=== PATIENT | male | born 1965 | race Caucasian/White ===

== ENCOUNTER 2025-07-22 13:17 | Emergency (ER) | payer MEDICAID, SELFPAY ==
[2025-07-22 13:17] VITALS: BMI 32.1
[2025-07-22 13:41] VITALS: BP 133/88; PULSE 98; RESP 18; TEMP 37.1; O2SAT 96
--- NOTE | 2025-07-22 13:42 | EDNOTE_ITS ---
ED Skin Abcess FB-RME/HPI General Stated complaint: LEFT LEG INFECTION Time Seen by Provider: 07/22/25 13:41 Arrival date/time: 07/22/25 13:17 59-year-old male presents to the emergency department complaints of erythema left lower extremity patient reports he ate a homemade tattoo 4 days ago which got infected Limitations: no limitations Related Data Home Medications ?Medication ?Instructions ?Recorded ?Confirmed fluoxetine 20 mg capsule 20 mg PO DAILY 10/17/2302/04 metoprolol tartrate 50 mg tablet 50 mg PO DAILY 10/17/23 olanzapine 15 mg tablet 15 mg PO DAILY 10/17/2302/04 prazosin 1 mg capsule 1 mg PO DAILY 10/17/2310/17 Previous Rx's ?Medication ?Instructions ?Recorded clindamycin HCl 150 mg capsule 450 mg (3 x 150 mg) PO TID 7 days 07/22/25 #63 caps ibuprofen 800 mg tablet 800 mg PO TID PRN pain #30 t abs 07/22/25 mupirocin 2 % topical ointment 1 applic topical TID 10 days #22 07/22/25 grams Allergies Allergy/AdvReac Type Severity Reaction Status Date / Time No Known Allergies Allergy Verified 07/22/25 13:19 Review of Systems Review of Systems Systems Reviewed: All systems reviewed, normal except as documented Constitutional Constitutional: Reports system reviewed and no additional complaints, except as documented, Denies fever(s) and Denies headache(s) Eyes Eyes: Reports system reviewed and no additional complaints, except as documented and Denies blurry vision ENT Ears, Nose, Mouth, and Throat: Reports system reviewed and no additional complaints, except as documented, Denies headache(s), Denies nasal congestion and Denies nasal discharge Cardiovascular Cardiovascular: Reports system reviewed and no additional complaints, except as documented, Denies chest pain and Denies dyspnea Respiratory Respiratory: Reports system reviewed and no additional complaints, except as documented, Denies chest congestion, Denies cough and Denies dyspnea Gastrointestinal Gastrointestinal: Reports system reviewed and no additional complaints, except as documented and Denies abdominal pain Integumentary/Breasts Skin/Breast: Reports system reviewed and no additional complaints, except as documented and Denies rash Neurologic Neurologic: Reports system reviewed and no additional complaints, except as documented, Reports as per HPI and Denies headache(s) Past Medical History Past Medical History NEUROLOGIC: Negative Neurological Disorders or Seizures CARDIAC: Positive Cardiac Disorders, Cardiac Arrhythmia (SVT 10 yrs ago) and Hypertension; Negative Congestive Heart Failure RESPIRATORY: Negative Chronic Obstructive Pulmonary Disease (COPD) or Asthma GASTROINTESTINAL: Negative Gastrointestinal Disorders GENITOURINARY: Negative Genitourinary Disorders or Renal Disease MUSCULOSKELETAL: Positive Musculoskeletal Disorders and Arthritis ENDOCRINE: Negative Endocrine Disorders, Diabetes Mellitus Type 1 or Diabetes Mellitus Type 2 HEMATOLOGIC: Negative Blood Disorders or Sickle Cell Disease PSYCHO/SOCIAL: Positive Recreational Drug Use (meth thc), Depression, Anxiety and Post Traumatic Stress Disorder OTHER HISTORY: Positive Hospitalization (sepsis and surgery) and Measles; Negative Autoimmune Disease, Shingles, Blood Transfusions, Blood Transfusion Reaction, Anesthesia Reactions or Cancer Family History FAMILY HISTORY: Negative Family Psychiatric Problems, Family Respiratory Disorders, Family Cardiac Disorders, Family Gastrointestinal Problems, Family Cancer, Family Surgery or Family Anesthesia Reaction Surgical History SURGICAL: Positive Abdominal Surgery, Gastric Bypass Surgery, Bowel Surgery (bowel infection was septic, induce coma) and Joint Replacement Social History SMOKING STATUS: Current some day smoker SECOND HAND EXPOSURE: Yes SUBSTANCE USE: marijuana ED Exam General Limitations: Present no limitations General appearance: Present alert and in no apparent distress Head Head exam: Present atraumatic, normocephalic and normal inspection Eye Eye exam: Present normal appearance, PERRL and EOMI; Absent conjunctival injection ENT ENT exam: Present normal exam, normal oropharynx and mucous membranes moist Neck Neck exam: Present normal inspection, full ROM and trachea midline Chest Chest inspection: Present normal inspection and symmetric chest wall rise Respiratory Respiratory exam: Present normal lung sounds bilaterally Cardiovascular Cardiovascular exam: Present regular rate, normal rhythm and normal heart sounds Abdominal Exam Abdominal exam: Present soft and normal bowel sounds; Absent distention, tenderness, guarding, rebound or rigidity Extremities Exam Extremities exam: Present normal inspection and full ROM Back Exam Back exam: Present normal inspection and full ROM Neurological Exam Neurological exam: Present alert, oriented X3 and CN II-XII intact Psychiatric Psychiatric exam: Present normal affect and normal mood Skin Skin exam: Present warm, dry and other (Edema left leg) Course Quality Measures none Orders Category Date Time Status Lidocaine 1% 20 ml [Xylocaine 1% 20 ML] Med 07/22/25 13:44 Discontinued 2.1 ml INFL X1 ONE cefTRIAXone [Rocephin] Med 07/22/25 13:44 Discontinued 1,000 mg IM X1 ONE Vital Signs Vital signs: Vital Signs Temperature 98.7 F 07/22/25 13:41 Pulse Rate 98 07/22/25 13:41 Respiratory Rate 18 07/22/25 13:41 Blood Pressure 133/88 H 07/22/25 13:41 Pulse Oximetry (%) 96 07/22/25 13:41 Oxygen Delivery Method Room Air 07/22/25 13:41 O2 saturation 96% room air within normal limits Skin / Abscess / Foreign Body MDM Narrative MDM Narrative:: 59-year-old male presents to the emergency department complaints of erythema left lower extremity patient reports he ate a homemade tattoo 4 days ago which got infected On exam patient has infection left lower extremity secondary to homemade tattoo Clinically patient does have cellulitis Patient was given injection of Rocephin discharged home with antibiotics and pain medication Patient discharged home in no distress to follow-up with primary care doctor in the next 24 to 48 hours and for any worsening symptoms to return to the ER immediately Patient data External records reviewed:: [facility] previous records Clinical information provided by:: patient Social determinants that could affect healthcare access:: none Patient has the following chronic illnesses:: None How is presenting disease/condition affected by chronic disease/condition?: no chronic disease Evaluation data The following diagnostics were reviewed and interpreted by me:: other (specify) (N/A) Lab and/or radiology exams considered but not ordered:: Considered and not ordered Interpretation Summary: N/A Medications / Prescriptions Medications or Prescriptions considered but not ordered:: Given Medication administrations:: Medication Administration History Discontinued Medications Ceftriaxone Sodium (Ceftriaxone Sod Inj 1,000 Mg Vial) 1,000 mg IM X1 ONE Stop: 07/22/25 13:45 Lidocaine HCl (Lidocaine Hcl 1% 20 Ml Vial) 2.1 ml INFL X1 ONE Stop: 07/22/25 13:45 given Consultations Consultation(s) initiated? (list below): No Diagnosis Skin/Abscess Differential Diagnosis: abscess of skin or subcutaneous tissue and cellulitis Most likely diagnosis given after review of the tests above:: Cellulitis left leg Admission Indicated Admission indicated?: not indicated Admission Request Was there a request for admission?: No Disposition Plan Disposition Plan: Discharge Discharge Attestation Discharge Attestation: The patient and all family members were given an opportunity to ask questions and understood the discharge instructions. Discharge instructions specifically effects, indications for sooner follow up or return to the emergency department, and the expected course of current diagnosis. Patient condition: Stable Discharge Plan Plan Patient Disposition: HOME (Self Care) Discharge Disposition comment: Stable Prescriptions/Referrals Prescriptions/Med Rec: New ibuprofen 800 mg tablet 800 mg PO TID PRN (Reason: pain) Qty: 30 0RF clindamycin HCl 150 mg capsule 450 mg PO TID 7 Days Qty: 63 0RF mupirocin 2 % ointment 1 applic topical TID 10 Days Qty: 22 0RF No Action prazosin 1 mg capsule 1 mg PO DAILY Patient Comments: TAKE ONE CAPSULE BY MOUTH AT BED TIME metoprolol tartrate 50 mg tablet 50 mg PO DAILY Patient Comments: TAKE ONE TABLET BY MOUTH TWICE DAILY WITH FOOD FOR BLOOD PRESSURE olanzapine 15 mg tablet 15 mg PO DAILY Patient Comments: TAKE ONE TABLET BY MOUTH AT BED TIME fluoxetine 20 mg capsule 20 mg PO DAILY Patient Comments: TAKE ONE CAPSULE BY MOUTH EVERY DAY Problem List Clinical Impression: Cellulitis of left leg Patient/Caregiver Discharge Instructions Education Materials: ED Cellulitis Additional Instructions: Please follow up with your primary care doctor in the next 24-48hrs for any worsening symptoms return here immediately Print Language: Icelandic Stand Alone Forms: Yessi Award Info., Patient Portal Info Letter PA/SUPERVISOR [employer]AF[employer]IT Supervising Physician PA/SUPERVISOR [employer]AF[employer] DEPOSIT Supervising Physician: Dr. reis
[2025-07-22] MEDS: LIDOCAINE HCL 1% 20 ML VIAL 2.1 ML INFL (14:38)
[2025-07-22] MEDS: cefTRIAXone SOD INJ 1,000 MG VIAL 1000 MG IM (14:39)
== END 2025-07-22 14:50 | disposition home or self-care (01) ==
LOC: SERX 14:47
PROVIDERS: Emergency Provider Nurse Practitioner Primary Care; PCP Family Medicine
DX: L03.116 Cellulitis of left lower limb (principal)
CPT/HCPCS: 96372; 99283; J0696; J3490